=== PATIENT | male | born 1985 | race Caucasian/White ===

== ENCOUNTER 2018-01-11 19:29 | Emergency (ER) | payer OTHER ==
[~2018-01-11] VITALS: Ht 172.7 cm; Wt 82.6 kg
[~2018-01-11 19:29] MED LIST: ADDERALL 10 MG10 MG PO; CLEOCIN HCL150 MG PO; NOHOMEMEDICATIONS; VENTOLIN HFA 1818 GM INH; ZPAK PO
[2018-01-11] MEDS ORDERED: ERYTHROMYCIN 2%60 GM TOP (20:50)
[2018-01-11] MEDS ORDERED: CLEOCIN HCL150 MG PO (20:50)
[2018-01-11 21:13] VITALS: BP 117/80
== END 2018-01-11 21:15 | disposition home or self-care (01) ==
LOC: M.ERS 19:29
DX: R21 Rash and other nonspecific skin eruption (principal); F90.9 Attention-deficit hyperactivity disorder, unspecified type; F17.210 Nicotine dependence, cigarettes, uncomplicated; Z91.040 Latex allergy status

== ENCOUNTER 2020-06-06 13:15 | Emergency (ER) | payer OTHER ==
[~2020-06-06] VITALS: Ht 172.7 cm; Wt 79.8 kg
[~2020-06-06 13:15] MED LIST changes: +ERYTHROMYCIN 2%60 GM TOP
[2020-06-06] MEDS ORDERED: VENTOLIN HFA 1818 GM INH (14:32)
[2020-06-06] MEDS ORDERED: ZPAK PO (14:32)
[2020-06-06] MEDS ORDERED: TESSALON PERLE100 MG PO (14:39)
[2020-06-06 15:52] VITALS: BP 136/71
== END 2020-06-06 15:54 | disposition home or self-care (01) ==
LOC: M.ERS 13:15
DX: J06.9 Acute upper respiratory infection, unspecified (principal); Z20.828 Contact with and (suspected) exposure to other viral communicable diseases; F17.210 Nicotine dependence, cigarettes, uncomplicated; Z91.040 Latex allergy status